=== PATIENT | female | born 1945 | race Caucasian/White ===

== ENCOUNTER 2017-01-21 10:30 | Inpatient (IN) | payer MEDICARE, OTHER ==
[~2017-01-21 10:30] MED LIST: ASPIR 8181 MG; ASPIRIN EC81 MG PO; AUGMENTIN 500-1 EAC2 PO; CALCIUM + D T1 UDTAB; CALCIUM 600 +1 EA24 PO; COMPLETE MULTI1 EAC1 PO; EQL FISH OIL 1,1 CAP; FENOFIBRATE PO; GLUCOSAMIN1 TAB.CHEW; HYZAAR 50-12.51 EACH PO; L-LYSINE500 M3 PO; MEGA RED PO; MULTIPLE VITAMI1 TAB; NAPROXEN SODIU220 M3 PO; NATURAL VIT1000 UNIT; NEURONTIN100 M1 PO; SUPER B COMPLEX1 CAP; ULTRAM50 M1 PO; VITAMIN B-125000 MC2 SL; VITAMIN C1000 M1 PO; VITAMIN C1000 MG; VITAMIN E400 UNI8 PO; XALATAN2.5 M1 OP
[2017-01-22 06:02] LABS: BASO % 0.1 % (0-2); HCT-HEMATOCRIT 32.1 % (34.0-49.0); HGB-HEMOGLOBIN 10.5 gm/dl (12.0-15.5); LYMPH % 4.9 % (20-45); LYMPH ABSOLUTE COUNT 0.8 tho/cmm (0.8-4.5); MCH (MEAN CORPUSCULAR HGB) 28.8 pg (28.0-32.0); MCHC MEAN CORPUSCULAR HGB CONC 32.7 % (32.0-36.0); MCV (MEAN CELL VOLUME) 88.2 fl (82.0-96.0); MEAN PLATELET VOLUME 11.8 cmc (9.4-12.4); MONO % 5.6 % (0-12); MONOCYTE ABSOLUTE COUNT 0.9 tho/cmm (0.0-1.2); NEUTROPHIL ABSOLUTE COUNT 13.8 tho/cmm (1.6-8.0); NEUTROPHIL-AUTOMATED 13.8 tho/cmm (1.6-8.0); NEUTROPHILS % 89.4 % (40-80); PLATELET COUNT 224 tho/cmm (150-450); RED BLOOD COUNT 3.64 mil/cmm (4.00-5.20); RED CELL DISTRIBUTION WIDTH 13.6 % (12.4-16.4); WHITE BLOOD COUNT 15.4 tho/cmm (4.0-10.0)
[2017-01-22 06:20] LABS: ALB/GLOB RATIO 0.9 (0.8-2.0); ALBUMIN 2.8 g/dl (3.5-5.0); ALKALINE PHOSPHATASE 44 U/L (33-138); ALT/SGPT 21 U/L (12-78); AST/SGOT 28 U/L (10-40); BILIRUBIN,TOTAL 0.4 mg/dl (0-1.5); BLOOD UREA NITROGEN 21 mg/dl (6-24); CALCIUM 8.5 mg/dl (8.5-10.5); CARBON DIOXIDE-VENOUS 26 mmol/L (22-32); CREATININE 1.21 mg/dl (0.50-1.10); GLUCOSE 143 mg/dL (70-110); eGFR VALUE FOR BLACK 51 mL/Min
[2017-01-22 06:49] LABS: ANION GAP 15 mmol/L (0-20); CHLORIDE 101 mmol/l (96-110); POTASSIUM 4.8 mmol/L (3.7-5.1); SODIUM 137 mmol/L (135-145)
[2017-01-24] MEDS ORDERED: TYLENOL325 M2 PO (10:33)
[2017-01-24] MEDS ORDERED: ASPIRIN81 M1 PO (10:34)
[2017-01-24] MEDS ORDERED: TRAMADOL HCL50 M2 PO (10:35)
[2017-01-24] MEDS ORDERED: MOBIC7.5 M2 PO (10:54)
[2017-01-24] MEDS ORDERED: ROXICODONE5 M2 PO (10:54)
== END 2017-01-24 12:05 | DRG 468 ==
LOC: SHSC 10:30 → ORE 13:58 → PACU 15:48 → 5EA 17:30
PROVIDERS: Registered Nurse; ADMIT Orthopaedic Surgery Foot and Ankle Surgery
PROC: 0SR902Z Replacement of Right Hip Joint with Metal on Polyethylene Synthetic Substitute, Open Approach (ICD-10-PCS; principal; 2017-01-21)
PROC: 0SP90JZ Removal of Synthetic Substitute from Right Hip Joint, Open Approach (ICD-10-PCS; 2017-01-21)
DX: T84.84XA Pain due to internal orthopedic prosthetic devices, implants and grafts, initial encounter (principal); T84.060A Wear of articular bearing surface of internal prosthetic right hip joint, initial encounter; N18.3 Chronic kidney disease, stage 3 (moderate); Z96.643 Presence of artificial hip joint, bilateral; I12.9 Hypertensive chronic kidney disease with stage 1 through stage 4 chronic kidney disease, or unspecified chronic kidney disease; E78.5 Hyperlipidemia, unspecified; I25.10 Atherosclerotic heart disease of native coronary artery without angina pectoris; Z79.82 Long term (current) use of aspirin; Z98.1 Arthrodesis status; Z88.5 Allergy status to narcotic agent; Z88.8 Allergy status to other drugs, medicaments and biological substances
CPT/HCPCS: J0171; J0690; J1885; J2270; J2795; J7030